=== PATIENT | female | born 1995 | race Caucasian/White ===

== ENCOUNTER 2018-08-13 16:03 | Emergency (ER) | payer OTHER, MEDICAID, SELFPAY ==
[2018-08-13 16:08] VITALS: BP 102/73; PULSE 72; RESP 18; TEMP 37; O2SAT 99; BMI 17.6
--- NOTE | 2018-08-13 16:57 | ED_ITS ---
HPI - Headache General Chief Complaint: Headache Stated Complaint: head pain/ache x1 day Time Seen by Provider: 08/13/18 16:18 Source: patient Mode of arrival: ambulatory Limitations: no limitations History of Present Illness HPI Narrative: Patient complains of headache since yesterday. She states she has been sensitive to light and has been nauseated today. Patient has a history of headaches on and off, but has not had 1 recently. She states it is located behind both eyes and in her temples and on top of her head. She denies any neck pain or stiffness. She states the pain is about a 6/10. Patient denies any head trauma or exposure to carbon monoxide. She has not been ill with anything recently , other than a URI a couple of weeks ago. No fevers or cough. patient has vomited a couple of times with the headache. Related Data Home Medications Medication Instructions Recorded Confirmed alprazolam [Xanax] 0.5 mg PO BID PRN 08/13/18 08/13/18 Allergies Allergy/AdvReac Type Severity Reaction Status Date / Time nitrofurantoin Allergy Dizziness Verified 08/13/18 16:14 [From Macrobid] Review of Systems Review of Systems All systems reviewed & are unremarkable except as noted in HPI and below Constitutional Denies chills, Denies fever(s), Reports headache(s), Denies lethargy and Denies weakness Eyes Denies change in vision, Denies eye discharge, Denies irritation and Denies loss of vision ENT Ears, Nose, Mouth, and Throat: Denies change in voice, Reports headache(s), Denies neck pain and Denies sore throat Cardiovascular Denies chest pain, Denies irregular heart rhythm, Denies lightheadedness, Denies palpitations, Denies dyspnea, Denies dyspnea on exertion and Denies orthopnea Respiratory Denies cough, Denies dyspnea, Denies dyspnea on exertion and Denies wheezing Gastrointestinal Gastrointestinal: Denies abdominal pain, Denies change in bowel habits, Denies diarrhea, Reports nausea and Denies vomiting Genitourinary Denies hematuria, Denies flank pain, Denies urinary incontinence and Denies urinary urgency Musculoskeletal Denies neck pain Integumentary/Breasts Denies pruritus, Denies erythema, Denies rash and Denies wounds Neurologic Denies confusion, Reports headache(s), Denies loss of vision and Denies weakness Psychiatric Denies anxiety, Denies confusion, Denies depression, Denies homicidal ideation and Denies suicidal ideation Endocrine Denies palpitations Hematologic/Lymphatic Denies easy bruising Allergic/Immunologic Denies wheezing [facility] Medical History Migraine (Acute) Surgical History No pertinent past surgical history (Acute) Social History Smoking Status: Former smoker Exam Initial Vital Signs Initial Vital Signs: Vital Signs Temperature 98.6 F 08/13/18 16:08 Pulse Rate 72 08/13/18 16:08 Respiratory Rate 18 08/13/18 16:08 Blood Pressure 102/73 08/13/18 16:08 Pulse Oximetry 99 08/13/18 16:08 Const General: cooperative and well developed Nutritional Appearance: well nourished Orientation: alert, awake, oriented x3 and not confused HENMT Head: normocephalic and atraumatic Ears: external ears normal and TM's normal bilaterally Nose: external nose normal and No nasal discharge Face and sinus: sinuses nontender, face symmetric, no sinus tenderness and No dry mucous membranes Mouth: oral mucosae normal and moist mucous membranes Teeth and gingiva: dentition normal Throat: tonsils normal and uvula midline Eyes General: appearance normal, both eyes and all related structures Eyelids: eyelids normal Conjunctivae: conjunctivae normal Sclera: sclerae normal Pupils: PERRL EOM: EOM intact bilaterally Neck Neck: normal visual inspection, trachea midline, No lymphadenopathy, No midline deformity and No JVD Lymphatic: No lymphedema Chest Chest: normal inspection of the chest Resp Effort & Inspection: normal respiratory effort, able to speak in complete sentences, no respiratory distress and no use of accessory muscles Auscultation: clear to auscultation bilaterally, no rales, no rhonchi and no wheezes Cardio Rate: regular rate Rhythm: regular rhythm Heart Sounds: no click, no gallops, no murmurs and no rubs Pulses: normal peripheral pulses GI Inspection: non-distended Palpation: soft, no hepatosplenomegaly, No guarding, No pulsatile mass and No tender Auscultation: normal bowel sounds Back/Spine/Pelvis Back: No CVA tenderness Cervical Spine: cervical ROM normal and No pain with cervical ROM Thoracic/Lumbar Spine: thoracic and lumbar spine normal to inspection Skin General: no rashes or lesions noted, No jaundice and No petechiae Neuro General: alert, oriented x3, gait normal and no focal motor deficits Speech: speech normal Extrem General: full ROM, no clubbing, cyanosis or edema, no pedal edema and no calf tenderness Psych Appearance: well kempt Mental Status: mental status grossly normal Attitude: cooperative Thought Content: normal and suicidality Judgment: judgment good Course Course Narrative: The patient was treated symptomatically in the emergency department, after which she was found to be feeling better. I felt she was stable for discharge home. We have discussed the usual indications for return, as well as symptomatic management home. At this point in time, there is no evidence of an emergent condition. Orders Ordered: Discontinued Medications Diphenhydramine HCl (Benadryl) 12.5 mg IM NOW ONE Stop: 08/13/18 17:05 Last Admin: 08/13/18 17:24 Dose: 12.5 mg Ketorolac Tromethamine (Toradol) 60 mg IM NOW ONE Stop: 08/13/18 17:05 Last Admin: 08/13/18 17:24 Dose: 60 mg Prochlorperazine (Compazine) 10 mg IV NOW ONE Stop: 08/13/18 17:10 Last Admin: 08/13/18 17:24 Dose: 10 mg Vital Signs - 8 hr 08/13/18 16:08 Temperature 98.6 F Pulse Rate 72 Respiratory Rate 18 Blood Pressure 102/73 Pulse Oximetry 99 MDM - Headache Medical Records Attestation: I reviewed the patient's medical records. Discharge Plan Departure Patient Disposition: Home Clinical Impression: Migraine Discharge Date/Time: 08/13/18 17:38 Interventions: ED Discharge Assessment Last Done: 08/13/18 17:37 Instructions: DI for Migraine Activity Restrictions/Additional Instructions: You have been treated with intramuscular medications, your request. Please go home and get some rest. If you find you are developing these headaches on regular basis, please see your primary care physician to discuss longer-term treatment. Prescriptions: No Action alprazolam [Xanax] 0.5 mg Tablet 0.5 mg PO BID PRN (Reason: Anxiety) RF: 0 Referrals: [facility] [Provider Group]
[2018-08-13 17:24] VITALS: PULSE 82
[2018-08-13] MEDS: diphenhydrAMINE 50 MG/ML VIAL 12.5 MG IM (17:24)
[2018-08-13] MEDS: KETOROLAC 60 MG/2 ML VIAL IM (17:24)
[2018-08-13] MEDS: PROCHLORPERAZINE 10 MG/2 ML VIAL IV (17:24)
[2018-08-13 17:36] VITALS: BP 115/75; PULSE 65; RESP 14; O2SAT 99
== END 2018-08-13 17:38 | disposition home or self-care (01) ==
PROVIDERS: Emergency Provider Emergency Medicine
DX: G43.909 Migraine, unspecified, not intractable, without status migrainosus (principal)
CPT/HCPCS: 96372; 96374; 99282; 99284; J0780; J1200; J1885

== ENCOUNTER → 2018-09-24 12:26 | Outpatient (CLI) | payer OTHER, MEDICAID, SELFPAY | PROVIDERS: Visit Provider Physician Assistant | DX: R30.0 Dysuria (principal); N39.0 Urinary tract infection, site not specified | CPT/HCPCS: 87077; 87086; 87147; 87491; 87591 ==